=== PATIENT | male | born 1970 | race Caucasian/White ===

== ENCOUNTER 2020-02-29 14:06 | Emergency (ER) | payer SELFPAY ==
[2020-02-29] MEDS ORDERED: Lidocaine 1% w/Epinephrine 1:100K 30 ML VIAL ONE (14:37)
[2020-02-29] MEDS ORDERED: Bacitracin 1 PK ONE (14:52)
== END 2020-02-29 14:55 | disposition home or self-care (01) ==
LOC: NAV ERS 14:06
DX: S71.111A Laceration without foreign body, right thigh, initial encounter (principal); F17.210 Nicotine dependence, cigarettes, uncomplicated; W26.0XXA Contact with knife, initial encounter
CPT/HCPCS: 12002; J2001